=== PATIENT | female | born 1990 | race Caucasian/White ===

== ENCOUNTER → 2018-02-06 | Outpatient (CLI) | payer BC ==
[~2018-02-06] VITALS: Ht 167.6 cm; Wt 84.0 kg
[~2018-02-06] MED LIST: ASPIR 8181 M1 PO; IBUPROFEN800 MG PO; LO-DOSE ASPIRIN81 M1 PO; PRENATAL TABLE1 EAC3 PO
[2018-02-06 16:07] VITALS: BP 108/61
== END | disposition home or self-care (01) ==
LOC: IVINF 15:49
DX: Z34.83 Encounter for supervision of other normal pregnancy, third trimester (principal); Z31.82 Encounter for Rh incompatibility status; Z3A.28 28 weeks gestation of pregnancy; Z67.11 Type A blood, Rh negative
CPT/HCPCS: 96372